=== PATIENT | female | born 1945 | race Caucasian/White ===

== ENCOUNTER 2017-06-29 23:59 | Observation (INO) ==
[2017-06-30] MEDS ORDERED: 0.9 % Sodium Chloride 1,000 ML IVC ONE (00:16)
--- NOTE | 2017-06-30 00:16 | Emergency Department Note ---
Disposition Time of Disposition: 03:52 <Andrea Yañez - Last Filed: 06/30/17 04:43> <Vickey Stewart - Last Filed: 06/30/17 05:22> Clinical Impression: Generalized weakness Upper respiratory infection Qualifiers: URI type: unspecified URI Qualified Code(s): J06.9 - Acute upper respiratory infection, unspecified Nausea and vomiting Qualifiers: Vomiting type: unspecified Vomiting Intractability: non-intractable Qualified Code(s): R11.2 - Nausea with vomiting, unspecified Disposition: Admitted As Inpatient Condition: Fair URI/Sore Throat HPI - General Source: patient, EMS Limitations: no limitations Nursing Notes Reviewed: Yes Vital Signs Reviewed: Yes - History of Present Illness Pt Subjective Complaint: fever, cough, flu symptoms, nasal congestion, other ( Nausea, vomiting, diarrhea) Onset (ago): day(s) (2) Duration: gradually worsening Improves with: nothing Worsens with: nothing Context: sick contacts Associated symptoms: Denies: abdominal pain, dysuria Treatments prior to arrival: none <nAdrea Yañez - Last Filed: 06/30/17 04:43> <Vickey Stewart - Last Filed: 06/30/17 05:22> - General Chief Complaint: ED Upper Respiratory Infection Stated Complaint: flu like s/s Time Seen by Provider: 06/30/17 00:02 - History of Present Illness HPI Narrative: Nontoxic-appearing 72-year-old female presents for evaluation of flulike symptoms. She complains of 2 days with gradually worsening fever, cough that is productive of a greenish colored sputum, nasal congestion, nausea, vomiting, diarrhea, and generalized myalgias. She does state numerous sick contacts with similar symptoms over the past several days. (Andrea Yañez) - Related Data Previous Rx's Medication Instructions Recorded Azithromycin [Zithromax] 1 applic PO DAILY #6 tablet 09/01/15 Promethazine/Codeine 5 ml PO TID PRN #90 syrup 09/01/15 [Phenergan/Codeine] Ondansetron ODT [Zofran ODT] 4 mg SL Q6HR PRN #12 tab.rapdis 06/30/17 Allergies Allergy/AdvReac Type Severity Reaction Status Date / Time No Known Allergies Allergy Verified 09/01/15 10:19 All systems ED: reviewed and negative except as stated. Constitutional: Reports: as per HPI, fever. Denies: chills, weakness, weight change Eyes: Denies: eye pain, eye discharge, vision change ENT ED: Reports: as per HPI, congestion. Denies: ear pain, throat pain, dental pain, hearing loss, epistaxis, dysphagia Cardiovascular: Denies: chest pain, palpitations, dyspnea on exertion, edema, syncope Respiratory: Reports: as per HPI, cough, sputum production. Denies: dyspnea, wheezes, hemoptysis, stridor Gastrointestinal: Denies: abdominal pain, nausea, vomiting, diarrhea, constipation, hematemesis, melena, hematochezia Genitourinary: Denies: dysuria, frequency, hematuria, discharge Musculoskeletal: Reports: as per HPI, myalgia (Generalized). Denies: back pain , neck pain, arthralgia Integumentary: Denies: rash, abrasion, lesions Neurological: Denies: headache, weakness, numbness, paresthesias, confusion, abnormal gait, vertigo Psychiatric: Denies: anxiety, depression, suicidal thoughts, homicidal thoughts , auditory hallucinations, visual hallucinations Endocrine: Denies: fatigue Hematological/Lymphatic: Denies: easy bleeding, easy bruising Allergic/Immunologic: Denies: facial swelling, urticaria <Andrea Yañez R - Last Filed: 06/30/17 04:43> URI PMH - Past Medical History Medical history: Reports: arthritis, cancer, fibromyalgia, hyperlipidemia, hypertension, other Surgical history: Reports: other Psychiatric history: Reports: no psych history - Social History Smoking Status: Never smoker Alcohol use: Reports: none Drug use: Reports: none <Andrea Yañez R - Last Filed: 06/30/17 04:43> Physical Exam - General Limitations: no limitations General appearance: alert, in no apparent distress - Head Head exam: atraumatic, normocephalic, normal inspection - Eye Eye exam: Present: normal appearance, PERRL, EOMI. Absent: nystagmus - ENT ENT exam: mucous membranes dry - Neck Neck exam: Present: normal inspection, full ROM, trachea midline. Absent: lymphadenopathy - Chest Chest inspection: Present: normal inspection, symmetric chest wall rise - Respiratory Respiratory exam: Present: normal lung sounds bilaterally. Absent: respiratory distress, wheezes, stridor, accessory muscle use, prolonged expiratory phase - Cardiovascular Cardiovascular exam: Present: regular rate, normal rhythm, normal heart sounds - Abdominal Exam Abdominal exam: Present: soft, tenderness, normal bowel sounds. Absent: distention, guarding, rebound, rigidity Abdominal tenderness: Present: epigastrium, mild - Extremities Exam Extremities exam: Present: normal inspection, full ROM. Absent: tenderness, pedal edema - Neurological Exam Neurological exam: Present: alert, oriented X3 - Psychiatric Psychiatric exam: Present: normal affect, normal mood - Skin Skin exam: Present: warm, dry, intact, normal color. Absent: rash <Andrea Yañez R - Last Filed: 06/30/17 04:43> Course <Andrea Yañez R - Last Filed: 06/30/17 04:43> <Vickey Stewart - Last Filed: 06/30/17 05:22> Course Narrative: 0430: Was informed by the patient's nurse Deepti that upon her entering the room and the patient her discharge paperwork, the patient sat on the side of the bed and stated "I think I am too weak to stand up, I do not feel safe going home". I went to the room to have a discussion with the patient. The patient attempted to stand up with the help of her nerves, but stated that she felt too weak and had to sit back down. Because of this, I spoke with Dr. Cortez of the hospital service. I have discussed her case, presentation, and workup. He states that he is agreeable to admitting the patient for 24-hour observation. The patient and her family members are in agreement with this plan. The patient 's states that he is unable to help care for her at home . I discussed this plan with Dr. Stewart, who has had a [id number] evaluation with the patient and he is also in agreement. (Andrea Yañez R) Vital Signs Temperature 97.9 F 06/30/17 00:02 Pulse Rate 61 06/30/17 00:02 Respiratory Rate 16 06/30/17 00:02 Blood Pressure 148/85 06/30/17 00:02 O2 Sat by Pulse Oximetry 100 06/30/17 00:02 Temperature 97.9 F 06/30/17 00:02 Pulse Rate 61 06/30/17 00:02 Respiratory Rate 16 06/30/17 00:02 Blood Pressure 148/85 06/30/17 00:02 O2 Sat by Pulse Oximetry 100 06/30/17 00:12 Oxygen Delivery Oxygen Delivery Room Air Upper Respiratory Infection - Medical Records Medical records reviewed: Yes I reviewed the patient's medical records. - Lab Data Lab results reviewed: Yes I reviewed the patient's lab results. Result diagrams: 06/30/17 00:30 06/30/17 00:30 - Radiology Data Radiology results reviewed: Yes I reviewed the patient's radiology results. - EKG Data EKG attestation: Yes I reviewed and interpreted this EKG. <Andrea Yañez - Last Filed: 06/30/17 04:43> - Lab Data Result diagrams: 06/30/17 00:30 06/30/17 00:30 <Vickey Stewart - Last Filed: 06/30/17 05:22> - MDM Narrative Medical decision making narrative: The patient's laboratory workup here has been benign aside from a very mild dehydration as evidenced by decreased GFR from baseline. Creatinine is within normal limits. She is influenza-negative. Chest x-ray and urinalysis showed no acute process. Upon physical exam, the patient's abdomen is soft, nondistended, and without rigidity or rebound. She had only very slight tenderness with palpation over the epigastrium. Given that the patient has had several contacts over the course of the past several days with similar symptoms , this is likely viral in etiology. We will treat symptomatically and have the patient follow up with her primary care provider. (Anrdea Yañez) - Lab Data Lab results narrative: Laboratory Last Values WBC 5.2 K/mcL (4.3-11.1) 06/30/17 00:30 RBC 4.73 M/mcL (3.82-4.97) 06/30/17 00:30 Hgb 14.4 g/dL (11.5-15.4) 06/30/17 00:30 Hct 43.3 % (35.3-44.9) 06/30/17 00:30 MCV 91.5 fL (83.0-100.0) 06/30/17 00:30 MCH 30.4 pg (28.0-33.3) 06/30/17 00:30 MCHC 33.3 g/dL (31.6-35.5) 06/30/17 00:30 RDW 13.3 % (11.5-14.5) 06/30/17 00:30 Plt Count 162 K/mcL (140-400) 06/30/17 00:30 MPV 10.6 fL (9.4-12.4) 06/30/17 00:30 Immature Gran % 0.4 % (0-4) 06/30/17 00:30 Seg Neutrophils % 74.6 % 06/30/17 00:30 Lymphocytes % 12.2 % 06/30/17 00:30 Monocytes % 12.2 % 06/30/17 00:30 Eosinophils % 0.2 % 06/30/17 00:30 Basophils % 0.4 % 06/30/17 00:30 Neutrophils # 3.9 K/mcL (1.6-8.9) 06/30/17 00:30 Lymphocytes # 0.6 K/mcL (0.6-4.6) 06/30/17 00:30 Monocytes # 0.6 K/mcL (0.0-1.3) 06/30/17 00:30 Eosinophils # 0.0 K/mcL (0.0-0.6) 06/30/17 00:30 Basophils # 0.0 K/mcL (0.0-0.2) 06/30/17 00:30 Sodium 134 mEq/L (136-145) L 06/30/17 00:30 Potassium 3.4 mEq/L (3.5-5.1) L 06/30/17 00:30 Chloride 101 mEq/L (98-107) 06/30/17 00:30 Carbon Dioxide 24 mEq/L (23-29) 06/30/17 00:30 BUN 19 mg/dL (8-23) 06/30/17 00:30 Creatinine 1.05 mg/dL (0.60-1.20) 06/30/17 00:30 Est GFR ( Amer) > 60 (> 60) 06/30/17 00:30 Est GFR (Non-Af Amer) 52 (> 60) L 06/30/17 00:30 BUN/Creatinine Ratio 18 (6-26) 06/30/17 00:30 Glucose 139 mg/dL (70-105) H 06/30/17 00:30 Calculated Osmolality 283 (280-300) 06/30/17 00:30 Calcium 8.9 mg/dL (8.6-10.3) 06/30/17 00:30 Magnesium 1.9 mg/dL (1.6-2.6) 06/30/17 00:30 Total Bilirubin 0.3 mg/dL (0.3-1.0) 06/30/17 00:30 Direct Bilirubin 0.1 mg/dL (0.0-0.2) 06/30/17 00:30 Indirect Bilirubin 0.2 mg/dL (0.0-1.2) 06/30/17 00:30 AST 37 Units/L (13-39) 06/30/17:30 ALT 28 Units/L (7-52) 06/30/17 00:30 Alkaline Phosphatase 66 Units/L (34-104) 06/30/17 00:30 Troponin I < 0.03 ng/mL (< 0.04) 06/30/17 00:30 Serum Total Protein 6.9 g/dL (6.4-8.9) 06/30/17 00:30 Albumin 4.2 g/dL (3.5-5.7) 06/30/17 00:30 Globulin 2.7 g/dL (2.4-3.5) 06/30/17 00:30 Albumin/Globulin Ratio 1.6 (1.1-2.2) 06/30/17 00:30 Amylase 42 Units/L (29-103) 06/30/17 00:30 Lipase 48 Units/L (11-82) 06/30/17 00:30 Urine Color Yellow (Yellow) 06/30/17 03:04 Urine Clarity Cloudy (Clear) A 06/30/17 03:04 Urine pH 6.0 pH Units (5.0-8.0) 06/30/17 03:04 Ur Specific Mayer 1.024 (1.010-1.025) 06/30/17 03:04 Urine Protein 30 mg/dL (Neg-Trace) H 06/30/17 03:04 Urine Glucose (UA) Normal mg/dL (Normal) 06/30/17 03:04 Urine Ketones Trace mg/dL (Negative) H 06/30/17 03:04 Urine Blood Negative (Negative) 06/30/17 03:04 Urine Nitrite Negative (Negative) 06/30/17 03:04 Urine Bilirubin Negative (Negative) 06/30/17 03:04 Urine Urobilinogen Normal mg/dL (Normal) 06/30/17 03:04 Ur Leukocyte Esterase Negative (Negative) 06/30/17 03:04 Urine Microscopic RBC 0-3 per hpf (0-3) 06/30/17 03:04 Urine Microscopic WBC 30-50 per hpf (0-3) H 06/30/17 03:04 Ur Squamous Epith Cells Many per lpf (None-Few) H 06/30/17 03:04 Urine Bacteria None Seen per hpf (None-Few) 06/30/17 03:04 Hyaline Casts Moderate per lpf (None-Few) H 06/30/17 03:04 Ur Culture Indicated? NO (NO) 06/30/17 03:04 (Andrea Yañez) Lab Results 06/30/17 06/30/17 06/30/17 Range/Units 00:30 00:30 00:30 WBC 5.2 (4.3-11.1) K/mcL RBC 4.73 (3.82-4.97) M/mcL Hgb 14.4 (11.5-15.4) g/dL Hct 43.3 (35.3-44.9) % MCV 91.5 (83.0-100.0) fL MCH 30.4 (28.0-33.3) pg MCHC 33.3 (31.6-35.5) g/dL RDW 13.3 (11.5-14.5) % Plt Count 162 (140-400) K/mcL MPV 10.6 (9.4-12.4) fL Immature Gran % 0.4 (0-4) % Seg Neutrophils % 74.6 % Lymphocytes % 12.2 % Monocytes % 12.2 % Eosinophils % 0.2 % Basophils % 0.4 % Neutrophils # 3.9 (1.6-8.9) K/mcL Lymphocytes # 0.6 (0.6-4.6) K/mcL Monocytes # 0.6 (0.0-1.3) K/mcL Eosinophils # 0.0 (0.0-0.6) K/mcL Basophils # 0.0 (0.0-0.2) K/mcL Sodium 134 L (136-145) mEq/L Potassium 3.4 L (3.5-5.1) mEq/L Chloride 101 (98-107) mEq/L Carbon Dioxide 24 (23-29) mEq/L BUN 19 (8-23) mg/dL Creatinine 1.05 (0.60-1.20) mg/dL Est GFR ( Amer) > 60 (> 60) Est GFR (Non-Af Amer) 52 L (> 60) BUN/Creatinine Ratio 18 (6-26) Glucose 139 H (70-105) mg/dL Calculated Osmolality 283 (280-300) Calcium 8.9 (8.6-10.3) mg/dL Magnesium 1.9 (1.6-2.6) mg/dL Total Bilirubin (0.3-1.0) mg/dL Direct Bilirubin (0.0-0.2) mg/dL Indirect Bilirubin (0.0-1.2) mg/dL AST (13-39) Units/L ALT (7-52) Units/L Alkaline Phosphatase (34-104) Units/L Troponin I (< 0.04) ng/mL Serum Total Protein (6.4-8.9) g/dL Albumin (3.5-5.7) g/dL Globulin (2.4-3.5) g/dL Albumin/Globulin Ratio (1.1-2.2) Amylase (29-103) Units/L Lipase (11-82) Units/L Urine Color (Yellow) Urine Clarity (Clear) Urine pH (5.0-8.0) pH Units Ur Specific Mayer (1.010-1.025) Urine Protein (Neg-Trace) mg/dL Urine Glucose (UA) (Normal) mg/dL Urine Ketones (Negative) mg/dL Urine Blood (Negative) Urine Nitrite (Negative) Urine Bilirubin (Negative) Urine Urobilinogen (Normal) mg/dL Ur Leukocyte Esterase (Negative) Urine Microscopic RBC (0-3) per hpf Urine Microscopic WBC (0-3) per hpf Ur Squamous Epith Cells (None-Few) per lpf Urine Bacteria (None-Few) per hpf Hyaline Casts (None-Few) per lpf Granular Casts (None Seen) per lpf Urine Mucus (Few) Urine Yeast (None Seen) per hpf Ur Culture Indicated? (NO) 06/30/17 06/30/17 06/30/17 Range/Units 00:30 00:30 03:04 WBC (4.3-11.1) K/mcL RBC (3.82-4.97) M/mcL Hgb (11.5-15.4) g/dL Hct (35.3-44.9) % MCV (83.0-100.0) fL MCH (28.0-33.3) pg MCHC (31.6-35.5) g/dL RDW (11.5-14.5) % Plt Count (140-400) K/mcL MPV (9.4-12.4) fL Immature Gran % (0-4) % Seg Neutrophils % % Lymphocytes % % Monocytes % % Eosinophils % % Basophils % % Neutrophils # (1.6-8.9) K/mcL Lymphocytes # (0.6-4.6) K/mcL Monocytes # (0.0-1.3) K/mcL Eosinophils # (0.0-0.6) K/mcL Basophils # (0.0-0.2) K/mcL Sodium (136-145) mEq/L Potassium (3.5-5.1) mEq/L Chloride (98-107) mEq/L Carbon Dioxide (23-29) mEq/L BUN (8-23) mg/dL Creatinine (0.60-1.20) mg/dL Est GFR ( Amer) (> 60) Est GFR (Non-Af Amer) (> 60) BUN/Creatinine Ratio (6-26) Glucose (70-105) mg/dL Calculated Osmolality (280-300) Calcium (8.6-10.3) mg/dL Magnesium (1.6-2.6) mg/dL Total Bilirubin 0.3 (0.3-1.0) mg/dL Direct Bilirubin 0.1 (0.0-0.2) mg/dL Indirect Bilirubin 0.2 (0.0-1.2) mg/dL AST 37 (13-39) Units/L ALT 28 (7-52) Units/L Alkaline Phosphatase 66 (34-104) Units/L Troponin I < 0.03 (< 0.04) ng/mL Serum Total Protein 6.9 (6.4-8.9) g/dL Albumin 4.2 (3.5-5.7) g/dL Globulin 2.7 (2.4-3.5) g/dL Albumin/Globulin Ratio 1.6 (1.1-2.2) Amylase 42 (29-103) Units/L Lipase 48 (11-82) Units/L Urine Color Yellow (Yellow) Urine Clarity Cloudy A (Clear) Urine pH 6.0 (5.0-8.0) pH Units Ur Specific Mayer 1.024 (1.010-1.025) Urine Protein 30 H (Neg-Trace) mg/dL Urine Glucose (UA) Normal (Normal) mg/dL Urine Ketones Trace H (Negative) mg/dL Urine Blood Negative (Negative) Urine Nitrite Negative (Negative) Urine Bilirubin Negative (Negative) Urine Urobilinogen Normal (Normal) mg/dL Ur Leukocyte Esterase Negative (Negative) Urine Microscopic RBC 0-3 (0-3) per hpf Urine Microscopic WBC 30-50 H (0-3) per hpf Ur Squamous Epith Cells Many H (None-Few) per lpf Urine Bacteria None Seen (None-Few) per hpf Hyaline Casts Moderate H (None-Few) per lpf Granular Casts Few H (None Seen) per lpf Urine Mucus Few (Few) Urine Yeast Few H (None Seen) per hpf Ur Culture Indicated? NO (NO) - Radiology Data Chest X-Ray 06/30/17 00:13 IMPRESSION: Negative portable chest. D/ / Ian Brian MD / Ian Brian MD Interpreting Provider: Ian Brian MD (Andrea Yañez) - EKG Data EKG results narrative: EKG shows a sinus rhythm with a marked sinus arrhythmia and left axis deviation at a rate of 64 bpm. GA interval 171, QRS duration 98, QT/QTc interval 406/ 416. No ectopy noted. No STEMI. No significant changes when compared to an EKG dated 09/07/2007. EKG reviewed by Dr. Stewart as well. (Andrea Yañez) Attestation Statement <Andrea Yañez - Last Filed: 06/30/17 04:43> <Vickey Stewart - Last Filed: 06/30/17 05:22> - Attestation Attestation: I, Vickey Stewart MD, personally evaluated this patient and discussed their management with the midlevel provicer, PAC/SPICE FUMIGATOR. I reviewed the midlevel provider 's note and agree with the documented findings, medical decision making, and plan of care. 72-year-old female presents to the emergency department with a 2 day history of flulike symptoms. She complains of generalized body aches and myalgias and just not feeling well. Some congestion. Some vomiting and diarrhea this evening. She complains of just generalized weakness to the point she is unable to get around. On examination patient is a well-developed well-nourished well-appearing elderly female in no acute distress. She is alert and oriented 3. There is no cyanosis or diaphoresis. Chest is nontender to palpation. Breath sounds are clear and equal bilaterally. Heart regular rate and rhythm. Abdomen soft and nontender with normal bowel sounds. Trace pedal edema. No gross focal neurological deficits. Labs reviewed with no significant abnormalities. Chest x-ray negative. The hospitalist, Dr. oCrtez, was consulted and accepted admission of the patient. (Vickey Stewart)
[2017-06-30 00:39] LABS: Basophils % 0.4 %; Eosinophils % 0.2 %; Hematocrit 43.3 % (35.3-44.9); Hemoglobin 14.4 g/dL (11.5-15.4); Immature Granulocytes % 0.4 % (0-4); Lymphocytes # 0.6 K/mcL (0.6-4.6); Lymphocytes % 12.2 %; Mean Corpuscular HGB Conc 33.3 g/dL (31.6-35.5); Mean Corpuscular Hemoglobin 30.4 pg (28.0-33.3); Mean Corpuscular Volume 91.5 fL (83.0-100.0); Mean Platelet Volume 10.6 fL (9.4-12.4); Monocytes # 0.6 K/mcL (0.0-1.3); Monocytes % 12.2 %; Neutrophils # 3.9 K/mcL (1.6-8.9); Platelet Count 162 K/mcL (140-400); Red Blood Count 4.73 M/mcL (3.82-4.97); Red Cell Distribution Width 13.3 % (11.5-14.5); Segmented Neutrophils % 74.6 %
[2017-06-30 01:00] LABS: BUN/Creatinine Ratio 18 (6-26); Blood Urea Nitrogen 19 mg/dL (8-23); Calcium 8.9 mg/dL (8.6-10.3); Carbon Dioxide 24 mEq/L (23-29); Chloride 101 mEq/L (98-107); Glucose 139 mg/dL (70-105); Osmolality,Calculated 283 (280-300); Potassium 3.4 mEq/L (3.5-5.1); Sodium 134 mEq/L (136-145); eGFR For African Americans > 60 (> 60); eGFR For Non-African Americans 52 (> 60)
[2017-06-30 02:46] LABS: Albumin 4.2 g/dL (3.5-5.7); Albumin/Globulin Ratio 1.6 (1.1-2.2); Bilirubin,Direct 0.1 mg/dL (0.0-0.2); Bilirubin,Indirect 0.2 mg/dL (0.0-1.2); Bilirubin,Total 0.3 mg/dL (0.3-1.0); Globulin 2.7 g/dL (2.4-3.5); Total Protein 6.9 g/dL (6.4-8.9)
[2017-06-30 03:35] LABS: Bilirubin,Urine Negative (Negative); Blood,Urine Negative (Negative); Clarity,Urine Cloudy (Clear); Color,Urine Yellow (Yellow); Glucose,Urine (UA) Normal (Normal); Ketones,Urine Trace mg/dL (Negative); Leukocyte Esterase,Urine Negative (Negative); Nitrite,Urine Negative (Negative); Protein,Urine 30 mg/dL (Neg-Trace); Specific Gravity,Urine 1.024 (1.010-1.025); Urobilinogen,Urine Normal (Normal)
[2017-06-30 03:42] LABS: Bacteria,Urine None Seen per hpf (None-Few); Hyaline Casts,Urine Moderate per lpf (None-Few); RBC,Urine 0-3 per hpf (0-3); Squamous Epithelial Cell,Urine Many per lpf (None-Few); WBC,Urine 30-50 per hpf (0-3)
[2017-06-30 04:14] LABS: Granular Casts,Urine Few per lpf (None Seen); Mucus,Urine Few (Few); Yeast,Urine Few per hpf (None Seen)
[2017-06-30] MEDS ORDERED: Ipratropium/Albuterol Neb 3 ML IH PRN (04:59)
[2017-06-30] MEDS ORDERED: Ondansetron 4 MG/2 ML VIAL IVP PRN (05:00)
[2017-06-30] MEDS ORDERED: *HR* Morphine 2 MG/ML SYRINGE IVP PRN (05:00)
[2017-06-30] MEDS ORDERED: *HR* OxyCODONE Immed Rel 5 MG TABLET PO PRN (05:00)
[2017-06-30] MEDS ORDERED: Naloxone 0.4 MG/ML INJ IVP PRN (05:00)
[2017-06-30] MEDS ORDERED: Dextrose Gel 15 GM/37.5 ML TUBE PO PRN ×2 (05:02)
[2017-06-30] MEDS ORDERED: *HR* Dextrose 50 % in Water (Syg) 50 ML SYRINGE IVP PRN (05:02)
[2017-06-30] MEDS ORDERED: D5% in Water 1,000 ML IVC PRN (05:02)
--- NOTE | 2017-06-30 05:06 | Internal Med History&Physical ---
Date of Encounter: 06/30/17 Time of Encounter: 05:04 Assessment and Plan (1) Acute bronchitis Current visit: Yes Status: Acute Acute bronchitis, possibly bacterial, unknown agent Azithromycin, DuoNeb nebs as needed Check respiratory viral panel Omeprazole for GI prophylaxis and subcutaneous heparin for DVT prophylaxis. The patient will be admitted for observation. Full code. Time spent on this admission 40 minutes. High risk of falling due to severe weakness Qualifiers: Bronchitis organism: unspecified organism Qualified Code(s): J20.9 - Acute bronchitis, unspecified (2) Hypokalemia Current visit: Yes Status: Acute Replete as needed (3) Hypertension Current visit: Yes Status: Acute Hydralazine IV as needed Qualifiers: Hypertension type: essential hypertension Qualified Code(s): I10 - Essential (primary) hypertension (4) Nausea and vomiting Current visit: Yes Status: Acute Likely secondary to viral infection Qualifiers: Vomiting type: unspecified Vomiting Intractability: non-intractable Qualified Code(s): R11.2 - Nausea with vomiting, unspecified (5) Generalized weakness Current visit: Yes Status: Acute Likely secondary to dehydration and upper respiratory infection Check a CK Monitor closely to consider Guillan Ethel and if weakness progresses (6) Diabetes Current visit: Yes Status: Acute Insulin sliding scale Qualifiers: Diabetes mellitus type: type 2 Diabetes mellitus complication status: without complication Diabetes mellitus fci insulin use: without fci use Qualified Code(s): E11.9 - Type 2 diabetes mellitus without complications Internal Medicine - H&P: HPI Chief complaint: weakness Admitted From: Emergency Dept History of present illness: Ms. Reeder is a 72 year old female with a past medical history of diabetes type 2 not insulin-dependent, hypertension, hyperlipidemia, fibromyalgia, came to the emergency room complaining of 2 days of unquantified fever, chills, nausea, epigastric pain, productive cough with greenish phlegm. She says that she has had multiple friends and family members with upper respiratory infections. Influenza was negative. She has been taking Tylenol and ibuprofen. Appears dehydrated, potassium is 3.4 sodium 134 glucose 139. UA shows 50 white blood cells but denies any dysuria. Feels dizzy every time that she stands up. Blood pressure is 148/83. Chest x-ray is unremarkable. Says that her legs are weaker than her arms but there is no distal to proximal progression of the weakness. Past Med Surg Social Fam HX - Past Medical History Medical history: arthritis, cancer (Melanoma in the left arm), diabetes (Not insulin-dependent), fibromyalgia, hyperlipidemia, hypertension, other ( Hemorrhoids, colonic polyps, sinusitis, UTIs, fibromyalgia) Psychiatric history: no psych history - Past Surgical History Surgical History: other (Right hip replacement, colonoscopy) - Social History Smoking Status: Never smoker Smokeless Tobacco Status: No Alcohol use: none Drug use: none - Additional Family History Additional family history: Father with lung cancer, mother with diabetes, uterine cancer, CVA and CAD Internal Medicine - H&P: Meds Azithromycin [Zithromax] 1 applic PO DAILY #6 tablet 09/01/15 [Rx] Promethazine/Codeine [Phenergan/Codeine] 5 ml PO TID PRN #90 syrup 09/01/15 [Rx] Ondansetron ODT [Zofran ODT] 4 mg SL Q6HR PRN #12 tab.rapdis 06/30/17 [Rx] 3 Allergy/AdvReac Type Severity Reaction Status Date / Time No Known Allergies Allergy Verified 09/01/15 10:19 All Systems PM: A 10-system review of systems was performed and is negative for pertinent findings except as documented above in the HPI. Review of systems: Chest pain pleuritic type, shortness of breath, other systems out of the 10 reviewed were negative - Constitutional Vitals: Temp Pulse Resp BP Pulse Ox 97.9 F 61 16 148/85 100 06/30/17 00:02 06/30/17 00:02 06/30/17 00:02 06/30/17 00:02 06/30/17 00:12 General appearance: Present: A&O X 3 (Dry mucosa, dehydrated) - Head Head exam: Present: atraumatic, normocephalic - Eye Eye exam: Present: PERRL, conjuntiva pink, sclera anicteric Pupils: Present: PERRL - Neck Neck exam general surgery: Present: supple, trachea midline. Absent: lymphadenopathy - Respiratory Respiratory exam: Present: CTAB. Absent: accessory muscle use, rales, rhonchi, wheezes - Cardiovascular Cardiovascular exam: Present: RRR, +S1, +S2. Absent: diastolic murmur, gallop, rubs, systolic murmur - GI/Abdominal GI/Abdominal exam: Present: normal bowel sounds, soft, no peritoneal signs. Absent: distended, tenderness - Extremities Exam Extremities exam: Present: warm, radial pulses palpable and symmetrical. Absent : calf tenderness, cyanotic, pedal edema - Neurological Exam Neurological exam: Present: CN II-XII intact, oriented X3, no focal deficits. Absent: pronater drift, facial droop, speech deficit - Skin Skin exam: Present: dry, intact Internal Med - H&P Results - Labs CBC & Chem 7: 06/30/17 00:30 06/30/17 00:30
[2017-06-30] MEDS: Azithromycin 500 MG in D5% in Water 250 ML IVPB SCH (06:59)
[2017-06-30] MEDS: *HR* Heparin 5,000 UNIT/ML VIAL SQ SCH ×3 (06:59→22:40)
[2017-06-30] MEDS: Insulin LISPRO 300 UNITS/3 ML VIAL SQ SCH ×3 (07:45→17:24)
[2017-06-30 12:57] LABS: Adenovirus Not Detected (Not Detect); Bordetella Pertussis Not Detected (Not Detect); Chlamydophila pneumoniae Not Detected (Not Detect); Coronavirus 229E Not Detected (Not Detect); Coronavirus HKU1 Not Detected (Not Detect); Coronavirus NL63 Not Detected (Not Detect); Coronavirus OC43 Not Detected (Not Detect); Human Metapneumovirus Not Detected (Not Detect); Human Rhinovirus/Enterovirus Not Detected (Not Detect); Influenza A Subtype 2009 H1 Not Detected (Not Detect); Influenza A Untypeable Not Detected (Not Detect); Influenza B ***DETECTED*** (Not Detect); Mycoplasma pneumoniae Not Detected (Not Detect); Parainfluenza Virus 1 Not Detected (Not Detect); Parainfluenza Virus 2 Not Detected (Not Detect); Parainfluenza Virus 3 Not Detected (Not Detect); Parainfluenza Virus 4 Not Detected (Not Detect); Respiratory Syncytial Virus Not Detected (Not Detect)
--- NOTE | 2017-06-30 13:29 | Internal Med Progress Note ---
Date of Encounter: 06/30/17 Time of Encounter: 08:10 - Assessment and plan (1) Nausea and vomiting Current Visit: Yes Status: Acute Assessment and plan: Onset last night. Likely viral in etiology. Antibiotics and IV fluids as needed. Qualifiers: Vomiting type: unspecified Vomiting Intractability: non-intractable Qualified Code(s): R11.2 - Nausea with vomiting, unspecified (2) Generalized weakness Current Visit: Yes Status: Acute Assessment and plan: Patient reports feeling weak and dizzy since nausea, vomiting, diarrhea last night. Likely secondary to dehydration, viral illness. Continue to monitor vital signs. Continue IV fluids and antiemetics. Monitor labs. (3) Acute bronchitis Current Visit: Yes Status: Acute Assessment and plan: Patient with productive cough with green sputum for 3 days. Lungs with diffuse inspiratory and expiratory wheezing in anterior and posterior quinteros. Chest x-ray is negative for acute process. Flu swab is obtained. Patient has been afebrile and vital signs are stable. She is not requiring supplemental oxygen. Continue duo nebs, guaifenesin, and Zithromax. O2 as needed to maintain sats greater than 92%. Continue monitor vital signs with pulse ox. Qualifiers: Bronchitis organism: unspecified organism Qualified Code(s): J20.9 - Acute bronchitis, unspecified (4) Diabetes Current Visit: Yes Status: Acute Assessment and plan: A1c will be drawn in the morning. Continue sliding scale insulin, Accu-Cheks, diabetic diet. Qualifiers: Diabetes mellitus type: type 2 Diabetes mellitus complication status: without complication Diabetes mellitus parts counterman insulin use: without parts counterman use Qualified Code(s): E11.9 - Type 2 diabetes mellitus without complications (5) Hypokalemia Current Visit: Yes Status: Acute Assessment and plan: Likely secondary to nausea and vomiting. Patient receiving by mouth supplementation. Resolving. Continue to monitor them draw labs. (6) Hypertension Current Visit: Yes Status: Acute Assessment and plan: Blood pressure is well controlled. Continue medications. Continue to monitor vital signs. Qualifiers: Hypertension type: essential hypertension Qualified Code(s): I10 - Essential (primary) hypertension (7) DVT prophylaxis Current Visit: Yes Status: Acute Assessment and plan: Heparin subcutaneous. - Time Spent With Patient less than 15 minutes - Subjective Interval history: Patient was seen and assessed at 0900 AM. Patient was sitting up on side of bed eating her breakfast. Patient states that she feels better than she did yesterday, however she still feels rather badly. She reports three-day history of cough, nausea and vomiting and diarrhea began last night. She presented to the emergency room due to feeling weak and dizzy. She denies any abdominal pain this morning. She denies chest pain or shortness of breath. She denies any headache or dizziness. She denies nausea or vomiting this morning, did have an episode of diarrhea this morning. Agreeable to spending the night again tonight. - Constitutional Vitals: Temp Pulse Resp BP Pulse Ox 98.2 F 63 16 120/58 96 06/30/17 11:16 06/30/17 11:16 06/30/17 11:16 06/30/17 11:16 06/30/17 11:16 General appearance: Present: cooperative, A&O X 3 (Dry mucosa, dehydrated), pleasant, no acute distress, answers questions appropriately - Head Head exam: Present: atraumatic, normal inspection, normocephalic - Eye Eye exam: Present: EOMI, normal appearance, conjuntiva pink, sclera anicteric. Absent: nystagmus - Neck Neck exam general surgery: Present: supple, trachea midline. Absent: lymphadenopathy, tenderness - Respiratory Respiratory exam: Present: CTAB. Absent: accessory muscle use, rales, rhonchi, wheezes - Cardiovascular Cardiovascular exam: Present: RRR, +S1, +S2. Absent: diastolic murmur, gallop, rubs, systolic murmur - GI/Abdominal GI/Abdominal exam: Present: normal bowel sounds, soft, no peritoneal signs. Absent: distended, hepatomegaly, tenderness - Extremities Exam Extremities exam: Present: normal capillary refill, normal inspection, warm, radial pulses palpable and symmetrical. Absent: calf tenderness, cyanotic, pedal edema, tenderness - Neurological Exam Neurological exam: Present: alert, normal gait, oriented X3, no focal deficits. Absent: altered, facial droop, speech deficit - Skin Skin exam: Present: dry, intact, normal color, warm. Absent: rash Internal Medicine: Result - Labs CBC & Chem 7: 06/30/17 00:30 06/30/17 00:30 Consult Discharge Plan - Plan Referrals: Ronak Cain DO [Primary Care Provider] -
[2017-07-01 03:40] LABS: Basophils % 0.7 %; Eosinophils % 1.4 %; Hematocrit 39.6 % (35.3-44.9); Immature Granulocytes % 0.4 % (0-4); Lymphocytes # 1.2 K/mcL (0.6-4.6); Lymphocytes % 41.9 %; Mean Corpuscular HGB Conc 32.8 g/dL (31.6-35.5); Mean Corpuscular Hemoglobin 30.3 pg (28.0-33.3); Mean Corpuscular Volume 92.3 fL (83.0-100.0); Mean Platelet Volume 10.3 fL (9.4-12.4); Monocytes # 0.4 K/mcL (0.0-1.3); Monocytes % 14.3 %; Neutrophils # 1.2 K/mcL (1.6-8.9); Platelet Count 126 K/mcL (140-400); Red Blood Count 4.29 M/mcL (3.82-4.97); Red Cell Distribution Width 13.8 % (11.5-14.5); Segmented Neutrophils % 41.3 %
[2017-07-01 04:11] LABS: BUN/Creatinine Ratio 19 (6-26); Blood Urea Nitrogen 16 mg/dL (8-23); Calcium 8.1 mg/dL (8.6-10.3); Carbon Dioxide 25 mEq/L (23-29); Chloride 111 mEq/L (98-107); Glucose 93 mg/dL (70-105); Osmolality,Calculated 291 (280-300); Potassium 4.4 mEq/L (3.5-5.1); Sodium 140 mEq/L (136-145); eGFR For African Americans > 60 (> 60); eGFR For Non-African Americans > 60 (> 60)
[2017-07-01] MEDS: Azithromycin 500 MG in D5% in Water 250 ML IVPB SCH (05:56)
[2017-07-01] MEDS: *HR* Heparin 5,000 UNIT/ML VIAL SQ SCH ×3 (05:59→20:19)
[2017-07-01] MEDS: Insulin LISPRO 300 UNITS/3 ML VIAL SQ SCH ×3 (09:15→16:30)
[2017-07-01] MEDS: Acetaminophen 325 MG TABLET PO PRN ×2 (09:26→22:37)
--- NOTE | 2017-07-01 09:29 | Internal Med Progress Note ---
Date of Encounter: 07/01/17 Time of Encounter: 08:30 - Assessment and plan (1) Nausea and vomiting Current Visit: Yes Status: Acute Assessment and plan: Antibiotics and IV fluids as needed. Labs WNL. Qualifiers: Vomiting type: unspecified Vomiting Intractability: non-intractable Qualified Code(s): R11.2 - Nausea with vomiting, unspecified (2) Generalized weakness Current Visit: Yes Status: Acute Assessment and plan: Patient reports feeling weak and dizzy for several days and nausea, vomiting, and diarrhea on day of arrival. Likely secondary to dehydration, viral illness. Continue to monitor vital signs. Continue IV fluids and antiemetics. Monitor labs. WNL 07/01/17 (3) Acute bronchitis Current Visit: Yes Status: Acute Assessment and plan: Patient with productive cough with green sputum for 3 days. Lungs with expiratory wheezing in posterior quinteros. Chest x-ray is negative for acute process. Patient has been afebrile and vital signs are stable. She is not requiring supplemental oxygen. Negative for flu. Continue duo nebs, guaifenesin, and Zithromax. O2 as needed to maintain sats greater than 92%. Continue monitor vital signs with pulse ox. Qualifiers: Bronchitis organism: unspecified organism Qualified Code(s): J20.9 - Acute bronchitis, unspecified (4) Diabetes Current Visit: Yes Status: Acute Assessment and plan: A1c will be drawn in the morning. Continue sliding scale insulin, Accu-Cheks, diabetic diet. Qualifiers: Diabetes mellitus type: type 2 Diabetes mellitus complication status: without complication Diabetes mellitus rat exterminator insulin use: without jail use Qualified Code(s): E11.9 - Type 2 diabetes mellitus without complications (5) Hypokalemia Current Visit: Yes Status: Resolved Assessment and plan: Resolved. Continue to monitor them draw labs. (6) Hypertension Current Visit: Yes Status: Acute Assessment and plan: Chronic. Continue medications. Continue to monitor vital signs. Qualifiers: Hypertension type: essential hypertension Qualified Code(s): I10 - Essential (primary) hypertension (7) DVT prophylaxis Current Visit: Yes Status: Acute Assessment and plan: Heparin subcutaneous. Pt is ambulatory in room. (8) Sinus bradycardia Current Visit: Yes Status: Acute Assessment and plan: Patient has not been on cardiac monitoring. Noted to have irregular apical during assessment. EKG obtained shows sinus bradycardia with occasional supraventricular premature complexes, marked left axis deviation. Ventricular rate was 54, FL interval 142, QRS 97, QT/QTC 429/416. Patient has been placed on continuous telemetry Echocardiogram has been ordered. Patient denies chest pain, though she has been weak and dizzy, with shortness of breath, she also is being treated for bronchitis. She does not take any beta blockers. We will consider cardiology consultation based on results of echocardiogram. - Time Spent With Patient less than 15 minutes - Subjective Interval history: Patient was seen and assessed at 0830 AM. Patient reports that she feels some better, but still not good. She denies any abdominal pain this morning. She denies chest pain or shortness of breath. She denies any headache or dizziness. She denies nausea or vomiting. Apical irregular this am, pt denies known irregular heartbeat. She denies feeling palpitations or chest pain. - Constitutional Vitals: Temp Pulse Resp BP Pulse Ox 98.2 F 57 14 121/74 96 07/01/17 07:20 07/01/17 07:20 07/01/17 07:20 07/01/17 07:20 07/01/17 07:20 General appearance: Present: cooperative, A&O X 3 (Dry mucosa, dehydrated), pleasant, no acute distress, answers questions appropriately - Head Head exam: Present: atraumatic, normal inspection, normocephalic - Eye Eye exam: Present: normal appearance, conjuntiva pink, sclera anicteric - Neck Neck exam general surgery: Present: normal inspection, supple, trachea midline. Absent: lymphadenopathy, tenderness - Respiratory Respiratory exam: Present: decreased breath sounds, wheezes. Absent: accessory muscle use, chest wall tenderness, CTAB, rales, respiratory distress, rhonchi, tachypnea - Cardiovascular Cardiovascular exam: Present: irregular rhythm, +S1, +S2. Absent: diastolic murmur, gallop, rubs, systolic murmur - GI/Abdominal GI/Abdominal exam: Present: hepatomegaly, normal bowel sounds, soft, no peritoneal signs. Absent: distended, tenderness - Extremities Exam Extremities exam: Present: normal capillary refill, normal inspection, warm, radial pulses palpable and symmetrical. Absent: calf tenderness, cyanotic, pedal edema, tenderness - Neurological Exam Neurological exam: Present: alert, oriented X3, no focal deficits. Absent: altered, facial droop, speech deficit - Skin Skin exam: Present: dry, intact, normal color, warm. Absent: rash Internal Medicine: Result - Labs CBC & Chem 7: 07/01/17 03:30 07/01/17 03:30 Labs: Short CBC 07/01/17 Range/Units 03:30 WBC 2.8 L (4.3-11.1) K/mcL Hgb 13.0 (11.5-15.4) g/dL Hct 39.6 (35.3-44.9) % Plt Count 126 L (140-400) K/mcL Neutrophils # 1.2 L (1.6-8.9) K/mcL BMP 07/01/17 03:30 Sodium 140 Potassium 4.4 Chloride 111 H Carbon Dioxide 25 BUN 16 Creatinine 0.83 Glucose 93 Calcium 8.1 L Consult Discharge Plan - Plan Referrals: Ronak Cain DO [Primary Care Provider] -
[2017-07-02] MEDS: Azithromycin 500 MG in D5% in Water 250 ML IVPB SCH (06:16)
[2017-07-02] MEDS: *HR* Heparin 5,000 UNIT/ML VIAL SQ SCH (06:20)
[2017-07-02 06:31] LABS: Basophils % 0.4 %; Eosinophils % 1.1 %; Hematocrit 38.1 % (35.3-44.9); Hemoglobin 12.4 g/dL (11.5-15.4); Immature Granulocytes % 0.4 % (0-4); Lymphocytes % 39.3 %; Mean Corpuscular HGB Conc 32.5 g/dL (31.6-35.5); Mean Platelet Volume 10.9 fL (9.4-12.4); Monocytes # 0.3 K/mcL (0.0-1.3); Monocytes % 11.5 %; Neutrophils # 1.2 K/mcL (1.6-8.9); Platelet Count 133 K/mcL (140-400); Red Blood Count 4.14 M/mcL (3.82-4.97); Red Cell Distribution Width 13.7 % (11.5-14.5); Segmented Neutrophils % 47.3 %
[2017-07-02 06:33] LABS: Hemoglobin A1C 5.5 %
[2017-07-02 06:40] LABS: BUN/Creatinine Ratio 14 (6-26); Blood Urea Nitrogen 10 mg/dL (8-23); Carbon Dioxide 27 mEq/L (23-29); Chloride 108 mEq/L (98-107); Glucose 96 mg/dL (70-105); Osmolality,Calculated 287 (280-300); Potassium 4.1 mEq/L (3.5-5.1); Sodium 139 mEq/L (136-145); eGFR For African Americans > 60 (> 60); eGFR For Non-African Americans > 60 (> 60)
[2017-07-02 07:12] LABS: Platelet Estimate Slight Decrease (Normal)
[2017-07-02] MEDS: Insulin LISPRO 300 UNITS/3 ML VIAL SQ SCH ×2 (09:29→12:20)
--- NOTE | 2017-07-02 09:29 | Electrocardiograph Report ---
[address] [place], [place] [address] Test Date: 2017-07-02 Pat Name: Syl Reeder Department: 113 Room: 3B12 Gender: F Fruit Or Nut Picker: : 1945 Requested By: Carmen Herndon Order Number: [id number] Reading MD: Yamilka Harris Measurements Intervals [place] Rate: 52 P: 64 MN: 162 QRS: -35 QRSD: 93 T: 9 QT: 449 QTc: 428 Interpretive Statements SINUS BRADYCARDIA WITH OCCASIONAL SUPRAVENTRICULAR PREMATURE COMPLEXES LEFT AXIS DEVIATION NONSPECIFIC ST-T ABNORMALITY INFERIOR LEADS - CONSIDER ISCHEMIA Electronically Signed On 07-02-2017 9:28:00 EST by Yamilka Harris
--- NOTE | 2017-07-02 09:36 | Electrocardiograph Report ---
[address] [place], [place] [address] Test Date: 2017-07-01 Pat Name: Syl Reeder Department: 113 Room: 3B12 Gender: F Crts: LULA : 1945 Requested By: Carmen Herndon Order Number: [id number] Reading MD: Yamilka Harris Measurements Intervals [place] Rate: 52 P: 124 CT: 158 QRS: 224 QRSD: 105 T: 188 QT: 443 QTc: 424 Interpretive Statements SINUS BRADYCARDIA WITH FREQUENT SUPRAVENTRICULAR PREMATURE COMPLEXES ARM LEADS REVERSED LEFTWARD AXIS ABNORMAL RHYTHM ECG Electronically Signed On 07-02-2017 9:35:09 EST by Yamilka Harris
--- NOTE | 2017-07-02 10:12 | Electrocardiograph Report ---
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
[2017-07-02 11:18] VITALS: BP 122/60
--- NOTE | 2017-07-02 11:39 | Discharge Summary ---
Date of Encounter: 07/02/17 Time of Encounter: 08:45 - Discharge Diagnosis (1) Acute bronchitis Priority: Primary Status: Acute Comments: Patient with productive cough with green sputum for 3 days. Lungs with expiratory wheezing in posterior quinteros. Chest x-ray is negative for acute process. Patient has been afebrile and vital signs are stable. She is not requiring supplemental oxygen. Negative for flu. Lungs diminshed with ronchi heard in [place], clears with cough. Pt has improved, still complains of cough and malaise, but states that she is feeling better and could go home. Chest X-Ray 06/30/17 00:13 IMPRESSION: Negative portable chest. D/ / Ian Brian MD / Ian Brian MD Interpreting Provider: Ian Brian MD Qualifiers: Bronchitis organism: unspecified organism Qualified Code(s): J20.9 - Acute bronchitis, unspecified (2) Nausea and vomiting Priority: Secondary Status: Resolved Comments: Resolved. 2 with IV fluids, antiemetics, antibiotics. Qualifiers: Vomiting type: unspecified Vomiting Intractability: non-intractable Qualified Code(s): R11.2 - Nausea with vomiting, unspecified (3) Generalized weakness Priority: Secondary Status: Acute Comments: Patient reports feeling weak and dizzy for several days and nausea, vomiting, and diarrhea on day of arrival. Likely secondary to dehydration, viral illness. Patient states that she is feeling better. She has been up and ambulatory in the room. (4) Diabetes Priority: Secondary Status: Chronic Comments: A1c 5.5%. Continue home medications. Continue home Accu-Chek schedule when necessary Qualifiers: Diabetes mellitus type: type 2 Diabetes mellitus complication status: without complication Diabetes mellitus group home insulin use: without intermediate frame tender use Qualified Code(s): E11.9 - Type 2 diabetes mellitus without complications (5) Hypokalemia Priority: Secondary Status: Resolved (6) Hypertension Priority: Secondary Status: Acute Comments: Well controlled in hospital. Continue home medications. Qualifiers: Hypertension type: essential hypertension Qualified Code(s): I10 - Essential (primary) hypertension (7) Sinus bradycardia Priority: Secondary Status: Acute Comments: Patient was on telemetry for a short time this am. Noted to have irregular apical during assessment. EKG obtained shows sinus bradycardia with occasional supraventricular premature complexes, marked left axis deviation. Echocardiogram with LVEF 55%, indetrminate diastolic function, no significant valvular dysfunction. Patient denies chest pain, though she has been weak and dizzy, with shortness of breath, she also is being treated for bronchitis. She does not take any beta blockers. We will consider cardiology consultation based on results of echocardiogram. 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 Pt denies chest pain or palpitations. She is SOB, but most likely due to bronchitis and respiratory illness. (8) DVT prophylaxis Priority: Secondary Status: Acute Comments: Heparin subcutaneous. Patient has been ambulatory in her room. - Discharge Medications Prescriptions: Azithromycin [Zithromax] 250 mg PO Q24H #3 tablet GuaiFENesin ER [Mucinex] 600 mg PO BID PRN #30 tbbp.12hr PRN Reason: Cough Home Medications: Cholecalciferol (Vitamin D3) [Vitamin D3] 2,000 unit PO DAILY 06/30/17 [History] Cyanocobalamin (B-12) [Vitamin B12] 1,000 mcg PO MOWEFR 06/30/17 [History] Lisinopril [Zestril] 10 mg PO DAILY 06/30/17 [History] Azithromycin [Zithromax] 250 mg PO Q24H #3 tablet 07/02/17 [Rx] GuaiFENesin ER [Mucinex] 600 mg PO BID PRN #30 tbbp.12hr 07/02/17 [Rx] Allergies/Adverse Reactions: 3 Allergy/AdvReac Type Severity Reaction Status Date / Time No Known Allergies Allergy Verified 09/01/15 10:19 Procedures/tests Complete & Pending: Procedures Performed prior 72 hours Category Date Time Status EKG [ECG 12 lead ECG] [ECG] Routine Y 07/01/17 09:23 Completed EKG [ECG 12 lead ECG] [ECG] Routine Y 07/02/17 09:08 Completed EV echocardiogram Routine Y 07/01/17 09:22 Completed Date of admission: 06/30/17 04:56 Primary care physician: Ronak Cain DO Discharging clinician: Carmen L Katrina Anticipated date of discharge: 07/02/17 - Patient Status Disposition: Home, Self-Care Condition: Good Functional capacity at discharge: independent ambulation Overall status at discharge: patient is progressing back to baseline - Ambulatory Orders Ambulatory Orders: ECG holter monitor [ECG] Time Frame: 2 Days, Facility: [facility], Location: Cardiopulmonary Svc - Discharge Instructions Follow Up With: Ronak Cain DO [Primary Care Provider] - Additional Instructions: Please follow up with your primary care provider in the next 7-10 days for a follow-up visit. Return to emergency department as needed for any other problems or concerns, or if your symptoms return or become worse. Your prescriptions have been called to [facility] pharmacy on [facility]. Make sure that you are drinking plenty of fluids and getting plenty of rest. Take your medications as directed. Return to your normal activities and diet as tolerated. Your Holter monitor results will go to your primary care provider. Hospital course: Ms. Reeder is a 72 year old female - Time Spent with Patient Total time spent providing and/or coordinating discharge services: - Constitutional Vitals: Temp Pulse Resp BP Pulse Ox 98.0 F 66 16 122/60 97 07/02/17 11:17 07/02/17 11:17 07/02/17 11:17 07/02/17 11:17 07/02/17 11:17 General appearance: Present: cooperative, A&O X 3 (Dry mucosa, dehydrated), pleasant, no acute distress, answers questions appropriately - Head Head exam: Present: atraumatic, normal inspection, normocephalic - Eye Eye exam: Present: normal appearance, conjuntiva pink, sclera anicteric - Neck Neck exam general surgery: Present: supple, trachea midline. Absent: lymphadenopathy, tenderness - Respiratory Respiratory exam: Present: CTAB, rhonchi. Absent: accessory muscle use, chest wall tenderness, decreased breath sounds, rales, respiratory distress, wheezes - Cardiovascular Cardiovascular exam: Present: RRR, +S1, +S2. Absent: diastolic murmur, gallop, rubs, systolic murmur - GI/Abdominal GI/Abdominal exam: Present: normal bowel sounds, soft. Absent: distended, hepatomegaly, tenderness - Extremities Exam Extremities exam: Present: normal capillary refill, normal inspection, warm, radial pulses palpable and symmetrical. Absent: calf tenderness, cyanotic, pedal edema, tenderness - Neurological Exam Neurological exam: Present: alert, oriented X3, no focal deficits. Absent: facial droop, speech deficit - Skin Skin exam: Present: dry, intact, normal color, warm. Absent: rash
== END 2017-07-02 15:34 | disposition home or self-care (01) ==
LOC: EMEROO 23:59 → 3BNU 23:59
PROVIDERS: ADMIT Internal Medicine; ATTEND Registered Nurse

== ENCOUNTER 2019-04-18 15:54 | Inpatient (IN) ==
[2019-04-18] MEDS ORDERED: Ondansetron ODT 4 MG TAB.RAPDIS SL PRN (18:11)
[2019-04-18] MEDS ORDERED: Naloxone 0.4 MG/ML INJ IVP PRN (18:11)
[2019-04-18 18:57] LABS: INR 1.1; Prothrombin Time 12.2 Seconds (9.4-12.1)
[2019-04-18 18:59] LABS: Activated Partial Thrombo Time 33.5 Seconds (26.0-36.0)
[2019-04-18 19:06] LABS: Eosinophils # 0.1 K/mcL (0.0-0.6); Hematocrit 33.5 % (35.3-44.9); Hemoglobin 10.8 g/dL (11.5-15.4); Immature Granulocytes % 0.9 % (0-4); Lymphocytes # 1.6 K/mcL (0.6-4.6); Lymphocytes % 26.7 %; Mean Corpuscular HGB Conc 32.2 g/dL (31.6-35.5); Mean Corpuscular Hemoglobin 29.8 pg (28.0-33.3); Mean Corpuscular Volume 92.3 fL (83.0-100.0); Mean Platelet Volume 9.1 fL (9.4-12.4); Monocytes # 0.6 K/mcL (0.0-1.3); Monocytes % 10.3 %; Neutrophils # 3.5 K/mcL (1.6-8.9); Platelet Count 193 K/mcL (140-400); Red Blood Count 3.63 M/mcL (3.82-4.97); Red Cell Distribution Width 19.9 % (11.5-14.5); Segmented Neutrophils % 61.1 %; White Blood Count 5.8 K/mcL (4.3-11.1)
[2019-04-18 19:12] LABS: Alanine Aminotransferase 21 Units/L (7-52); Albumin 4.1 g/dL (3.5-5.7); Albumin/Globulin Ratio 1.6 (1.1-2.2); Alkaline Phosphatase 77 Units/L (34-104); Aspartate Amino Transferase 20 Units/L (13-39); BUN/Creatinine Ratio 19 (6-26); Bilirubin,Total 0.4 mg/dL (0.3-1.0); Blood Urea Nitrogen 14 mg/dL (8-23); Calcium 9.5 mg/dL (8.6-10.3); Carbon Dioxide 26 mEq/L (23-29); Chloride 104 mEq/L (98-107); Globulin 2.5 g/dL (2.4-3.5); Glucose 103 mg/dL (70-105); Osmolality,Calculated 291 (280-300); Sodium 140 mEq/L (136-145); Total Protein 6.6 g/dL (6.4-8.9); eGFR For African Americans > 60 (> 60); eGFR For Non-African Americans > 60 (> 60)
[2019-04-19] MEDS: Cefepime HCl 2,000 MG in Water for inj. (sterile) 20 ML IVP SCH ×3 (00:04→19:54)
[2019-04-19] MEDS: *HR* Heparin 5,000 UNIT/ML VIAL SQ SCH ×2 (06:29→19:54)
[2019-04-19 06:33] LABS: Hematocrit 30.5 % (35.3-44.9); Mean Corpuscular HGB Conc 32.8 g/dL (31.6-35.5); Mean Corpuscular Hemoglobin 29.9 pg (28.0-33.3); Mean Corpuscular Volume 91.3 fL (83.0-100.0); Mean Platelet Volume 9.3 fL (9.4-12.4); Platelet Count 180 K/mcL (140-400); Red Blood Count 3.34 M/mcL (3.82-4.97); Red Cell Distribution Width 20.4 % (11.5-14.5); White Blood Count 5.1 K/mcL (4.3-11.1)
[2019-04-19 06:59] LABS: BUN/Creatinine Ratio 19 (6-26); Blood Urea Nitrogen 13 mg/dL (8-23); Calcium 9.3 mg/dL (8.6-10.3); Carbon Dioxide 27 mEq/L (23-29); Chloride 103 mEq/L (98-107); Glucose 108 mg/dL (70-105); Osmolality,Calculated 293 (280-300); Potassium 4.2 mEq/L (3.5-5.1); Sodium 141 mEq/L (136-145); eGFR For African Americans > 60 (> 60); eGFR For Non-African Americans > 60 (> 60)
[2019-04-20] MEDS: Cefepime HCl 2,000 MG in Water for inj. (sterile) 20 ML IVP SCH ×3 (00:12→15:57)
[2019-04-20] MEDS: *HR* Heparin 5,000 UNIT/ML VIAL SQ SCH ×2 (05:08→18:05)
[2019-04-20 09:19] LABS: Hematocrit 32.4 % (35.3-44.9); Hemoglobin 10.7 g/dL (11.5-15.4); Mean Corpuscular Hemoglobin 30.2 pg (28.0-33.3); Mean Corpuscular Volume 91.5 fL (83.0-100.0); Mean Platelet Volume 9.6 fL (9.4-12.4); Platelet Count 174 K/mcL (140-400); Red Blood Count 3.54 M/mcL (3.82-4.97)
[2019-04-20 10:24] LABS: BUN/Creatinine Ratio 19 (6-26); Blood Urea Nitrogen 13 mg/dL (8-23); Calcium 9.3 mg/dL (8.6-10.3); Carbon Dioxide 23 mEq/L (23-29); Chloride 105 mEq/L (98-107); Glucose 105 mg/dL (70-105); Osmolality,Calculated 288 (280-300); Potassium 4.2 mEq/L (3.5-5.1); Sodium 139 mEq/L (136-145); eGFR For African Americans > 60 (> 60); eGFR For Non-African Americans > 60 (> 60)
[2019-04-20] MEDS ORDERED: ACYCLOVIR TP PRN (13:58)
[2019-04-20] MEDS ORDERED: dexAMETHasone 4 MG TABLET PO PRN (14:00)
[2019-04-20] MEDS: Cholecalciferol (D-3) 1,000 UNIT (25MCG) TABLET PO SCH (15:57)
[2019-04-21] MEDS: Cefepime HCl 2,000 MG in Water for inj. (sterile) 20 ML IVP SCH ×2 (00:29→10:25)
[2019-04-21 05:13] LABS: Hematocrit 31.4 % (35.3-44.9); Hemoglobin 10.6 g/dL (11.5-15.4); Mean Corpuscular HGB Conc 33.8 g/dL (31.6-35.5); Mean Corpuscular Hemoglobin 29.9 pg (28.0-33.3); Mean Corpuscular Volume 88.7 fL (83.0-100.0); Mean Platelet Volume 9.4 fL (9.4-12.4); Platelet Count 186 K/mcL (140-400); Red Blood Count 3.54 M/mcL (3.82-4.97)
[2019-04-21] MEDS: *HR* Heparin 5,000 UNIT/ML VIAL SQ SCH ×2 (05:22→17:51)
[2019-04-21 05:31] LABS: BUN/Creatinine Ratio 24 (6-26); Blood Urea Nitrogen 17 mg/dL (8-23); Calcium 9.1 mg/dL (8.6-10.3); Carbon Dioxide 25 mEq/L (23-29); Chloride 105 mEq/L (98-107); Glucose 112 mg/dL (70-105); Osmolality,Calculated 288 (280-300); Potassium 4.1 mEq/L (3.5-5.1); Sodium 138 mEq/L (136-145); eGFR For African Americans > 60 (> 60); eGFR For Non-African Americans > 60 (> 60)
[2019-04-21 07:55] LABS: Basophils % 0.3 %; Eosinophils # 0.1 K/mcL (0.0-0.6); Immature Granulocytes % 0.7 % (0-4); Lymphocytes # 1.6 K/mcL (0.6-4.6); Monocytes # 0.6 K/mcL (0.0-1.3); Monocytes % 10.7 %; Neutrophils # 3.6 K/mcL (1.6-8.9); Segmented Neutrophils % 60.3 %
[2019-04-21] MEDS ORDERED: Multivit/Ca/Min/Fe/FA 1 TAB TABLET PO SCH (09:00)
[2019-04-21] MEDS ORDERED: Cyanocobalamin (B-12) 1,000 MCG TABLET PO SCH (09:00)
[2019-04-21] MEDS: Cholecalciferol (D-3) 1,000 UNIT (25MCG) TABLET PO SCH (10:26)
[2019-04-21 14:52] VITALS: BP 128/73
[2019-04-21] MEDS ORDERED: Cefepime HCl 2,000 MG in Water for inj. (sterile) 20 ML IVP SCH ×2 (17:00→22:00)
== END 2019-04-21 18:44 | disposition home health service (06) | DRG 315 ==
LOC: 3ANU 16:36 → SUATTDRO 16:36
PROVIDERS: ADMIT Family Medicine; ATTEND Family Medicine

== ENCOUNTER 2019-05-27 15:21 | Inpatient (IN) ==
[2019-05-27] MEDS ORDERED: 0.9 % Sodium Chloride 1,000 ML IVC ONE (16:22)
[2019-05-27] MEDS ORDERED: Isovue-370 500 ML BOTTLE IVP ONE (16:22)
[2019-05-27] MEDS ORDERED: Pantoprazole 40 MG VIAL IVP ONE (16:23)
[2019-05-27 16:52] LABS: Basophils % 0.5 %; Eosinophils # 0.1 K/mcL (0.0-0.6); Eosinophils % 2.1 %; Hematocrit 32.9 % (35.3-44.9); Hemoglobin 10.6 g/dL (11.5-15.4); Immature Granulocytes % 1.3 % (0-4); Lymphocytes # 0.5 K/mcL (0.6-4.6); Lymphocytes % 13.7 %; Mean Corpuscular HGB Conc 32.2 g/dL (31.6-35.5); Mean Corpuscular Hemoglobin 31.2 pg (28.0-33.3); Mean Corpuscular Volume 96.8 fL (83.0-100.0); Mean Platelet Volume 10.7 fL (9.4-12.4); Monocytes % 0.5 %; Neutrophils # 3.2 K/mcL (1.6-8.9); Platelet Count 164 K/mcL (140-400); Red Cell Distribution Width 15.5 % (11.5-14.5); Segmented Neutrophils % 81.9 %; White Blood Count 3.9 K/mcL (4.3-11.1)
[2019-05-27 17:09] LABS: INR 1.4
[2019-05-27 17:12] LABS: Activated Partial Thrombo Time 33.9 Seconds (26.0-36.0)
[2019-05-27 17:15] LABS: Large Platelets Present (Not Present); Platelet Estimate Normal (Normal)
[2019-05-27 17:28] LABS: Alanine Aminotransferase 18 Units/L (7-52); Albumin 3.8 g/dL (3.5-5.7); Albumin/Globulin Ratio 1.9 (1.1-2.2); Alkaline Phosphatase 61 Units/L (34-104); Aspartate Amino Transferase 17 Units/L (13-39); BUN/Creatinine Ratio 33 (6-26); Bilirubin,Direct 0.1 mg/dL (0.0-0.2); Bilirubin,Indirect 0.5 mg/dL (0.0-1.0); Bilirubin,Total 0.6 mg/dL (0.3-1.0); Blood Urea Nitrogen 24 mg/dL (8-23); Calcium 8.7 mg/dL (8.6-10.3); Carbon Dioxide 28 mEq/L (23-29); Chloride 102 mEq/L (98-107); Glucose 130 mg/dL (70-105); Lipase 25 Units/L (11-82); Osmolality,Calculated 296 (280-300); Potassium 4.2 mEq/L (3.5-5.1); Sodium 140 mEq/L (136-145); Total Protein 5.8 g/dL (6.4-8.9); eGFR For African Americans > 60 (> 60); eGFR For Non-African Americans > 60 (> 60)
[2019-05-27] MEDS ORDERED: Naloxone 0.4 MG/ML INJ IVP PRN (18:07)
[2019-05-27 23:26] LABS: Hematocrit 32.1 % (35.3-44.9); Hemoglobin 10.4 g/dL (11.5-15.4)
[2019-05-28 04:02] LABS: Hematocrit 30.5 % (35.3-44.9); Hemoglobin 10.3 g/dL (11.5-15.4); Mean Corpuscular HGB Conc 33.8 g/dL (31.6-35.5); Mean Corpuscular Hemoglobin 31.4 pg (28.0-33.3); Mean Platelet Volume 10.4 fL (9.4-12.4); Platelet Count 161 K/mcL (140-400); Red Blood Count 3.28 M/mcL (3.82-4.97); Red Cell Distribution Width 15.4 % (11.5-14.5)
[2019-05-28 04:26] LABS: BUN/Creatinine Ratio 28 (6-26); Blood Urea Nitrogen 19 mg/dL (8-23); Calcium 8.7 mg/dL (8.6-10.3); Carbon Dioxide 31 mEq/L (23-29); Chloride 102 mEq/L (98-107); Glucose 152 mg/dL (70-105); Osmolality,Calculated 295 (280-300); Potassium 3.6 mEq/L (3.5-5.1); Sodium 140 mEq/L (136-145); eGFR For African Americans > 60 (> 60); eGFR For Non-African Americans > 60 (> 60)
[2019-05-28] MEDS ORDERED: 0.9 % Sodium Chloride 500 ML IVC SCH (09:00)
[2019-05-28 09:15] LABS: Estimated Average Glucose 128 mg/dl
[2019-05-28] MEDS ORDERED: Lidocaine -MPF 2% 2 ML VIAL ONE (10:13)
[2019-05-28] MEDS ORDERED: Propofol 500 MG/50 ML INFUS..BTL ONE (10:13)
[2019-05-28] MEDS: methylPREDNISolone 125 MG/2 ML VIAL IVP SCH ×2 (14:32→23:17)
[2019-05-28] MEDS: levoFLOXacin 500 MG TABLET PO SCH (14:32)
[2019-05-28] MEDS: metroNIDAZOLE 500 MG TABLET PO SCH ×2 (14:32→23:16)
[2019-05-28] MEDS: Vancomycin Oral Soln 125 MG/2.5 ML UDC PO SCH ×2 (17:48→23:16)
[2019-05-29] MEDS: methylPREDNISolone 125 MG/2 ML VIAL IVP SCH (05:19)
[2019-05-29] MEDS: Vancomycin Oral Soln 125 MG/2.5 ML UDC PO SCH ×2 (10:00→14:01)
[2019-05-29] MEDS: levoFLOXacin 500 MG TABLET PO SCH (10:00)
[2019-05-29] MEDS: metroNIDAZOLE 500 MG TABLET PO SCH ×2 (10:00→14:09)
[2019-05-29 10:42] LABS: Hematocrit 33.1 % (35.3-44.9); Hemoglobin 11.3 g/dL (11.5-15.4); Mean Corpuscular HGB Conc 34.1 g/dL (31.6-35.5); Mean Corpuscular Hemoglobin 31.6 pg (28.0-33.3); Mean Corpuscular Volume 92.5 fL (83.0-100.0); Mean Platelet Volume 10.4 fL (9.4-12.4); Platelet Count 202 K/mcL (140-400); Red Blood Count 3.58 M/mcL (3.82-4.97); Red Cell Distribution Width 14.8 % (11.5-14.5)
[2019-05-29 10:46] LABS: White Blood Count 5.5 K/mcL (4.3-11.1)
[2019-05-29 11:34] VITALS: BP 133/74
== END 2019-05-29 14:49 | disposition home or self-care (01) | DRG 372 ==
LOC: EMEROOARM 15:21 → 3ANU 15:21
PROVIDERS: ADMIT Internal Medicine; ATTEND Internal Medicine
PROC: ENDOCBX (2019-05-28 19:00)